=== PATIENT | female | born 1980 | race Caucasian/White ===

== ENCOUNTER → 2021-12-17 15:48 | Outpatient (CLI) | payer OTHER, SELFPAY ==
--- NOTE | 2021-12-17 15:50 | DI.US.S_ITS ---
PROCEDURE: US OB <= 14 WEEKS FETUS INDICATIONS: DATING AND VIABILITY OUTSIDE/PRIOR DATING DATA: Last menstrual period (LMP): September 23, 2021. LMP-based estimated date of delivery (RAFAL): June 30, 2022. First dating scan (date and location): December 17, 2021. Estimated date of delivery (RAFAL) from first dating scan: June 29, 2022. TECHNIQUE: Real-time scanning was performed of the fetus and maternal pelvic organs, with image documentation. Endovaginal scanning was also performed to better visualize the fetus and maternal ovaries. COMPARISON: None. FINDINGS: Embryo: Single living intrauterine gestation with estimated sonographic gestational age of approximately 12 weeks and 2 days based off crown-rump length measurement of approximately 5.8 cm. Heart rate: 178 beats per minute Maternal organs: Left ovary/adnexa not visualized. Possible corpus luteal cyst seen in the right ovary. IMPRESSION: Single living intrauterine gestation with estimated sonographic gestational age of approximately 12 weeks and 2 days. Estimated dated delivery is approximately June 29, 2022. Recommend continued clinical surveillance and return for routine second-trimester anatomy screening survey. We strive to produce accurate, complete, and clear reports of imaging services. To assist us in improving patient care, this report was composed using standard report templates and voice recognition software. Therefore, it may contain abnormal punctuation, insertions and/or omissions. Occasional wrong-word or sound-alike substitutions may occur. Though we review the report and make efforts to correct it, we do recommend that the report be read carefully in proper context to recognize any text inaccuracies. Dictated by: Emeka Luevano M.D. on 12/17/2021 at 16:46 Approved by: Emeka Luevano M.D. on 12/17/2021 at 16:48
== END ==
PROVIDERS: PCP Student in an Organized Health Care Education/Training Program; Referring Provider Obstetrics & Gynecology; Visit Provider Obstetrics & Gynecology
DX: Z34.01 Encounter for supervision of normal first pregnancy, first trimester (principal); Z3A.12 12 weeks gestation of pregnancy
CPT/HCPCS: 76801; 76817

== ENCOUNTER → 2021-12-22 15:26 | Outpatient (CLI) | payer OTHER, SELFPAY ==
[2021-12-22 19:56] LABS: Urine N gonorrhoeae NOT DETECTED
[2021-12-22 20:47] LABS: Urine Chlamydia NOT DETECTED
== END ==
PROVIDERS: PCP Student in an Organized Health Care Education/Training Program; Visit Provider Obstetrics & Gynecology
DX: Z34.01 Encounter for supervision of normal first pregnancy, first trimester (principal); Z3A.12 12 weeks gestation of pregnancy
CPT/HCPCS: 87491; 87591

== ENCOUNTER → 2021-12-22 16:26 | Outpatient (CLI) | payer OTHER, SELFPAY ==
[2021-12-22 18:09] LABS: Add Manual Diff / Slide Review NO; Basophils Absolute Auto 0 /uL (0-100); Basophils Percent Auto 0.2 % (0-2); Eosinophils Absolute Auto 100 /uL (0-450); Eosinophils Percent Auto 1.7 % (2-4); Hematocrit 37.9 % (36-46); Hemoglobin 12.8 g/dL (12.0-16.0); Lymphocytes Absolute Auto 1800 /uL (1100-4500); Lymphocytes Percent Auto 30.1 % (25-40); Mean Corpuscular HGB Conc 33.9 % (30-36); Mean Corpuscular Hemoglobin 30.3 PG (26-34); Mean Corpuscular Volume 89.4 fL (80-100); Monocytes Absolute Auto 300 /uL (0-900); Monocytes Percent Auto 5.1 % (3-14); Neutrophils Absolute Auto 3900 /uL (1500-7000); Neutrophils Percent Auto 62.9 % (50-75); Platelet Count 181 X10^3/uL (150-400); Red Blood Cell Count 4.23 X10^6/uL (4.0-5.2); Red Cell Distribution Width 15.6 % (11.6-14.8); White Blood Cell Count 6.1 X10^3/uL (4.5-11.0)
[2021-12-23 16:36] LABS: Hepatitis B Surface Antigen NEGATIVE s/c (NEGATIVE); Rubella Antibody IgG 10.2 IU/mL (>15)
[2021-12-23 16:50] LABS: HIV 1 & 2 Ab/Ag 4th Gen Combo NEGATIVE (NEGATIVE); Hep C Virus Ab w/Reflex Quant NEGATIVE s/c (NEGATIVE)
[2021-12-24 07:18] LABS: RPR Screen Non Reactive (Non Reactive); Varicella IgG Antibody 236 index (Immune >165)
== END ==
PROVIDERS: PCP Student in an Organized Health Care Education/Training Program; Referring Provider Obstetrics & Gynecology; Visit Provider Obstetrics & Gynecology
DX: Z34.01 Encounter for supervision of normal first pregnancy, first trimester (principal); Z3A.12 12 weeks gestation of pregnancy
CPT/HCPCS: 36415; 80055; 86787; 86803; 86850; 86900; 86901; 87389; 87491; 87591

== ENCOUNTER → 2022-01-19 15:13 | Outpatient (CLI) | payer OTHER, SELFPAY ==
[2022-01-19 16:28] LABS: Specimen Label NATERA
[2022-01-21 20:17] LABS: AFP Value 33.6 ng/mL (.); Gest Age on Col Date 16.9 weeks (.); Insulin Dep Diabetes No (.); OSBR Risk 1IN 10000 (.); Results Report (.); Test Results *Screen Negative* (.)
== END ==
PROVIDERS: PCP Student in an Organized Health Care Education/Training Program; Referring Provider Obstetrics & Gynecology; Visit Provider Obstetrics & Gynecology
DX: Z34.02 Encounter for supervision of normal first pregnancy, second trimester (principal); Z3A.16 16 weeks gestation of pregnancy
CPT/HCPCS: 82105

== ENCOUNTER → 2022-02-15 16:12 | Outpatient (CLI) | payer OTHER, SELFPAY ==
[2022-02-15 19:21] LABS: Appearance Urine UA CLEAR; Bilirubin Urine UA NEGATIVE (NEGATIVE); Color Urine UA YELLOW; Glucose Urine UA NEGATIVE (Negative); Ketones Urine UA NEGATIVE (NEGATIVE); Leukocyte Esterase Urine UA NEGATIVE (NEGATIVE); Nitrite Urine UA NEGATIVE (Negative); Occult Blood Urine UA NEGATIVE (Negative); Protein Urine UA NEGATIVE (Negative); Urobilinogen Urine UA 0.2 E.U./dL (0.2)
== END ==
PROVIDERS: PCP Student in an Organized Health Care Education/Training Program; Referring Provider Obstetrics & Gynecology; Visit Provider Obstetrics & Gynecology
DX: Z34.02 Encounter for supervision of normal first pregnancy, second trimester (principal); Z3A.20 20 weeks gestation of pregnancy; Z20.828 Contact with and (suspected) exposure to other viral communicable diseases
CPT/HCPCS: 81003; 86695; 86696; 87086

== ENCOUNTER → 2022-02-18 06:46 | Outpatient (CLI) | payer OTHER, SELFPAY ==
--- NOTE | 2022-02-18 06:51 | DI.US.S_ITS ---
PROCEDURE: US OB >= 14 WEEKS FETUS INDICATIONS: 20 week anatomy scan OUTSIDE/PRIOR DATING DATA: Last menstrual period (LMP): 09/23/2021. LMP-based estimated date of delivery (RAFAL): 06/30/2022. First dating scan (date and location): 12/17/2021. Estimated date of delivery (RAFAL) from first dating scan: 06/29/2022. TECHNIQUE: Real-time scanning was performed of the fetus, with image documentation and biometric measurements. Endovaginal scanning: Not performed COMPARISON: None. FINDINGS: General: A single living intrauterine gestation is present. Presentation: Vertex. Placenta: Placental position is anterior , without previa. Amniotic fluid index: 17.1 cm, normal range is 5-24 cm. Single deepest vertical pocket is 5.2 cm. heart rate: 150 beats per minute. Maternal cervical canal: 3.0 cm long. Normal lower limit is 2.5 cm. biometrics: Biparietal diameter: 5.3 cm, 22 weeks 0 days Head circumference: 19.7 cm, 21 weeks 6 days Abdominal circumference: 16.4 cm, 21 weeks 3 days Femur length: 3.6 cm, 21 weeks 2 days estimated gestational age: 21 weeks 2 days Composite gestational age from present scan: 21 weeks 5 days Estimated weight and percentile: 427 g, 55th percentile Anatomic survey: Neuro: Ventricles are non-dilated at less than 10 mm. Cisterna magna is normal at 3-11 mm. Cerebellum is normal in size and morphology. Nuchal skin fold: Normal at less than 6 mm between 14-21 weeks gestational age. Face: Nose and lips, facial profile are normal. Spine: No evidence for spina bifida. Heart: 4-chambered heart is present, with normal ventricular outflow tracts. Diaphragm: Diaphragm is intact. Stomach: Left-sided stomach is present. Kidneys: No hydronephrosis. Normal is less than 5 mm in 2nd trimester, less than 7 mm in 3rd trimester. Cord: 3-vessel cord has orthotopic insertion. Bladder: Normal in size. Extremities: All 4 extremities identified. IMPRESSION: 1. Single living intrauterine . 2. Normal 2nd trimester anatomy survey. No anomalies detected at this time. We strive to produce accurate, complete, and clear reports of imaging services. To assist us in improving patient care, this report was composed using standard report templates and voice recognition software. Therefore, it may contain abnormal punctuation, insertions and/or omissions. Occasional wrong-word or sound-alike substitutions may occur. Though we review the report and make efforts to correct it, we do recommend that the report be read carefully in proper context to recognize any text inaccuracies. Dictated by: Akash Ness M.D. on 02/18/2022 at 9:52 Approved by: Akash Ness M.D. on 02/18/2022 at 10:12
== END ==
PROVIDERS: PCP Student in an Organized Health Care Education/Training Program; Referring Provider Obstetrics & Gynecology; Visit Provider Obstetrics & Gynecology
DX: Z34.02 Encounter for supervision of normal first pregnancy, second trimester (principal); Z3A.21 21 weeks gestation of pregnancy
CPT/HCPCS: 76811

== ENCOUNTER → 2022-03-25 10:19 | Outpatient (CLI) | payer OTHER, SELFPAY ==
[2022-03-25 13:29] LABS: GTT (PREG) 1 Hour PP 50gm Dose 115 mg/dL (76-139)
[2022-03-25 15:33] LABS: Hematocrit 33.4 % (36-46); Hemoglobin 11.5 g/dL (12.0-16.0)
== END ==
PROVIDERS: PCP Student in an Organized Health Care Education/Training Program; Referring Provider Obstetrics & Gynecology; Visit Provider Obstetrics & Gynecology
DX: Z34.02 Encounter for supervision of normal first pregnancy, second trimester (principal); Z3A.26 26 weeks gestation of pregnancy
CPT/HCPCS: 36415; 82950; 85014; 85018

== ENCOUNTER → 2022-06-08 14:39 | Outpatient (CLI) | payer OTHER, SELFPAY ==
[2022-06-09 13:59] LABS: Strep Grp B PCR NEG for Grp B Strep
== END ==
PROVIDERS: PCP Student in an Organized Health Care Education/Training Program; Visit Provider Obstetrics & Gynecology
DX: Z34.83 Encounter for supervision of other normal pregnancy, third trimester (principal); Z3A.36 36 weeks gestation of pregnancy
CPT/HCPCS: 87653

== ENCOUNTER 2022-06-27 19:18 | Inpatient (IN) | payer OTHER, SELFPAY ==
--- NOTE | 2022-06-27 19:33 | PM.OBHP.1 ---
OB HPI Date/Time Date of admission: 06/27/22 Date Patient Seen: 06/28/22 Time Patient Seen: 08:10 History of Present Condition Chief complaint: IUP, 39+4 wks EGA, AMA, Rh NEG (FOB Rh NEG also) : 1 Para: 0 Estimated Date of Delivery: 06/30/22 Estimated Gestational Age (weeks): 39+5 Narrative: Evie Tran is a 42 year old primigravida admitted at 39+ 4 weeks gestational age for ripening and induction due to advanced maternal age. course has been unremarkable with solid dating, and appropriate milestones throughout. Patient is Rh negative but father of the baby is also documented to be Rh negative therefore she has not received RhoGAM during the . 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 prophylaxis at 36 weeks as a precaution. She reports no genital lesions. GBS is negative. Indications Indication for induction OB: other (Advanced maternal age) History of Present care: good care Dating criteria: LMP confirmed by 1st trimester US Ultrasounds: normal 1st trimester US and normal mid trimester US Obstetrical complications: other (Advanced maternal age) Preadmission Labs Blood type: 0 (-) negative -: Antibody screen: negative, Cystic fibrosis screen: negative, GBS status: negative, HIV: negative, HSV 1: positive, HSV 2: positive and RPR/VDLR: negative -: Chlamydia screen: not detected and Gonorrhea screen: not detected -: Rubella: not immune and Varicella: immune HCT: 35.7 HCAB: negative PAP: Normal Quad screen: Normal (AFP testing negative) Cell-free DNA: Low risk male infant 1 hr GTT: 115 Prior (ies) History: N/A Evaluation Evaluation Baseline heart rate: 135 Variability: Moderate (11-25) monitor accelerations: Present Monitor Decelerations: Episodic Contraction Frequency (minutes): 5 Uterine Contraction Intensity: Moderate Category of Tracing: Reactive Status: Category l Dilation (cm): 3 Effacement (%): 75 Dilation: 3-4 cm Effacement: 60-70% station: 0 Position of cervix: mid Consistency: soft Estrada score: 9 [facility] Medical History (Updated 06/24/22 @ 13:44 by Rohan Paula MD) Allergies (~1999) Chicken pox (~1984) Healthy female adult Surgical History (Updated 12/22/21 @ 19:35 by Sandy Miranda) Anesthesia [facility] teeth extracted (~2004) Family History (Updated 12/14/21 @ 15:39 by Lucila Saldivar RN) Father Hypertension Hyperlipidemia Prostate cancer Grandfather Heart disease Social History marital status: unmarried,living together number of children: 0 household members: significant other lives independently: Yes housing: [facility] ([facility]) pets and animals: No education level: other (doctorate (dentist)) occupational status: employed current occupational exposures/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) special uzair needs: No travel history: recent (domestic only) seatbelt use: always helmet use: Yes water heater temp set < 120 deg: Yes working smoke detector in home: Yes fire extinguisher in home: Yes carbon monox detector in home: Yes firearms in home: Yes firearms unloaded and locked: Yes do you feel safe at home: Yes Smoking Status: Never smoker second hand exposure: No alcohol intake: former (socially ~1-2/week prior to ) substance use type: does not use during the past year weight has: remained stable well-balanced diet: daily or most days daily servings fruits/ve-4 caffeine: Yes (1 cup/day, extra cup decaf on weekends) Type(s) of exercise: bicycling, weight lifting and running frequency: 3-4 times per week Meds Home Medications and Allergies Home Medications Medication Instructions Recorded Confirmed Type loratadine 10 mg tablet (Allergy 10 mg PO DAILY 12/14/21 06/27/22 History Relief (loratadine)) prenat.vits,clarence,qmw-iykp-jyfat 1 tab PO DAILY 12/14/21 06/27/22 History ferrous sulfate 143 mg PO DAILY 04/15/22 06/27/22 History acyclovir 400 mg tablet 400 mg PO TID #90 tabs 06/08/22 06/27/22 Rx Allergies Allergy/AdvReac Type Severity Reaction Status Date / Time No Known Drug Allergies Allergy Unverified 06/24/22 13:29 Review of Systems Review of Systems Narrative: Problem-specific ROS positives included in HPI OB Exam Vital signs Blood Pressure: 128/78 Pulse Rate: 62 Respiratory Rate: 16 Temperature: 97.7 F HENNH Head: normal to inspection, normocephalic and atraumatic Eyes General: appearance normal, both eyes and all related structures Resp Effort & Inspection: normal respiratory effort and able to speak in complete sentences Auscultation: clear to auscultation bilaterally Cardio Rate: regular rate Rhythm: regular rhythm Heart Sounds: S1 normal, S2 normal and no murmurs Extremities Lower extremity: Yes normal to inspection GI Inspection: normal to inspection Palpation: Yes soft and Yes no hepatosplenomegaly Uterus Location (Fundal Height): 36 Presentation: vertex Estimated Weight (lbs): 7 Objective Labs 06/27/22 20:30 Assessment and Plan Assessment and Plan Assessment and Plan narrative: ASSESSMENT 1. Intrauterine , 39+5 wks EGA 2. Advanced maternal age 3. Rh negative status 4. GBS negative status 5. Thrombocytopenia PLAN 1. Admit for ripening and delivery 2. See admission orders Time Spent with Patient Total time spent with greater than 50% in coordination of care (as documented) at patient's floor/unit and/or counseling patient:: 15-24 minutes
[2022-06-27 21:00] LABS: Add Manual Diff / Slide Review NO; Basophils Absolute Auto 0 /uL (0-100); Basophils Percent Auto 0.3 % (0-2); Eosinophils Absolute Auto 100 /uL (0-450); Eosinophils Percent Auto 0.9 % (2-4); Hematocrit 34.7 % (36-46); Hemoglobin 12.1 g/dL (12.0-16.0); Lymphocytes Absolute Auto 2200 /uL (1100-4500); Lymphocytes Percent Auto 31.7 % (25-40); Mean Corpuscular HGB Conc 34.9 % (30-36); Mean Corpuscular Hemoglobin 32.8 PG (26-34); Mean Corpuscular Volume 94.1 fL (80-100); Monocytes Absolute Auto 300 /uL (0-900); Monocytes Percent Auto 4.7 % (3-14); Neutrophils Absolute Auto 4300 /uL (1500-7000); Neutrophils Percent Auto 62.4 % (50-75); Platelet Count 142 X10^3/uL (150-400); Red Blood Cell Count 3.69 X10^6/uL (4.0-5.2); Red Cell Distribution Width 13.3 % (11.6-14.8)
[2022-06-27] MEDS: miSOPROStoL 25 MCG TABLET 50 MCG VAG (21:01)
[2022-06-27 21:03] VITALS: BP 135/76
[2022-06-28] MEDS: LACTATED RINGERS 1,000 ML 100 ML IV ×3 (02:25→11:18)
[2022-06-28] MEDS: fentaNYL 100 MCG/2 ML INJ 50 MCG IV (05:21)
[2022-06-28] MEDS: LACTATED RINGERS 500 ML 1000 ML IV (06:04)
[2022-06-28] MEDS: FENT 2MCG/ML BUPIV 0.125% EPI 200 MCG/100 ML PLAST..BAG 8 MCG EPIDURAL (06:33)
[2022-06-28 08:58] VITALS: BP 128/78; PULSE 62; RESP 16; TEMP 36.5
--- NOTE | 2022-06-28 08:58 | PM.OBPNLAB ---
Date/Time Date Patient Seen: 06/28/22 Time Patient Seen: 08:58 Pain Control Pain control: tolerating well and epidural Pelvic Exam Dilation (cm): 3 Effacement (%): 8 station: 0 Amniotic membrane status: Ruptured Contractions Contractions on admission: none Monitor mode: External Contraction pattern: Irregular Contraction phase: Resting Contraction intensity: Moderate Status status: Category ll Heart Rate Baseline: 130 Monitor Decelerations: Episodic, Late and Prolonged Monitor Variability: Minimal Assessment and Plan Assessment: active labor Plan: Comments: Patient's recurrent decelerations now associated with vaginal bleeding. Counseled re: options and will move forward with primary due to intolerance of labor.
[2022-06-28] MEDS: CEFAZOLIN 2 GM/100 ML PREMIX 100 ML IV (09:03)
--- NOTE | 2022-06-28 09:15 | SUR.OPER ---
Supine on padded OR bed, head on pillow, arms secured on padded arm boards at <90 degrees abduction, legs uncrossed, safety belt at thigh, tape over blanket over lower legs.
--- NOTE | 2022-06-28 09:25 | SUR.OPER ---
TOB 0920. PLACENTA AND BABY WITH OB RN.
--- NOTE | 2022-06-28 10:00 | SUR.OPER ---
FHT 120 prior to incision, viable baby boy born at 0920, placenta delivered at 0923, 4/9, cord blood and placenta given to OB RN
[2022-06-28 10:12] VITALS: BP 134/70; PULSE 64; RESP 14; TEMP 36.3; O2SAT 100
[2022-06-28 10:17] VITALS: BP 140/74; PULSE 65; RESP 21; O2SAT 100
--- NOTE | 2022-06-28 10:17 | P.OP_ITS ---
Operative Date/Time/Diagnoses Date of procedure: 06/28/22 Time of procedure: 09:00 Pre-op diagnosis: Intrauterine gestation, viramontes, 39+5 weeks EGA intolerance of labor Post-op diagnosis: same Procedure & Clinicians Procedure: Primary section, low transverse cervical incision Same procedure as scheduled: Yes Indications: Evie is a 42-year-old at 39+ 5 weeks' gestation admitted last evening for cervical ripening and induction due to advanced maternal age. She has done well with good response to oral Cytotec and experienced spontaneous rupture of membranes overnight. She had an episode of bradycardia following spontaneous rupture membranes which resolved with position change and fluid bolus. The patient however has started having episodes of sustained bradycardia down to the 70-80 beats per minute range and extended periods of minimal variability. Cervical exam shows the patient to still be 3 cm dilated with the vertex at 0 station therefore is remote from delivery with worsening periods of bradycardia. After discussion of all options, patient agrees to proceed with primary section on an expedited basis due to intolerance of labor. Surgeon: Rohan Paula Flatbed Truck Driver: Allie Lopez Reason for Flatbed Truck Driver: Flatbed Truck Driver required for the safe, effective, and timely completion of this surgery. Anesthesia Type: Spinal Operative Notes Findings: Viable male BW 3000 gms. (6 lbs. 9.8 oz.), Apgars 5/9/9, delivered from the vertex presentation. Normal gravid anatomy. Closure Type: primary Specimen(s): cord blood and cord pH Intraoperative meds administered: Pitocin Applied: Catheter Estimated Blood Loss (mL): 700 Blood products transfused: none Procedure in detail: With her informed written consent, the patient was taken to the operating room and placed in the supine position for a primary section procedure, for the indication(s) above. The abdomen was prepped and draped in the usual manner for section and a pre-surgical timeout was taken per [facility] OR protocol. Once effective anesthesia was confirmed, a 13 cm transverse Pfannenstiel incision was made in the skin and taken down through the subcutaneous tissues to the deep fascia. The deep fascia was incised transversely, the rectus abdominal eyes bluntly and sharply, and the peritoneal cavity entered without difficulty. The lower uterine segment was visualized and the position/presentation palpated. A transverse incision at or above the vesicouterine reflection was made with Metzenbaum scissors and transverse hysterotomy performed near the midline. Amniotomy revealed clear fluid. The incision was extended bilaterally with digital traction and the was delivered easily from the vertex presentation. The was not vigorous at and delayed cord clamping was not performed. The placenta was delivered intact using gentle cord traction and fundal massage. Cord blood was obtained for routine studies and cord blood gases which were normal. The uterine cavity was then cleared of any clot/debris first with a sloppy wet lap tape followed by a dry lap tape. Ring forceps were then applied to the angles and the midline of the incised RAYNE. A primary closure of the uterus was then accomplished with #1 CCGS in a running interlocking stitch followed by a 2nd layer of #1 CCGS in a running interlocking imbricating stitch. No additional sutures were required to achieve complete hemostasis. Once pelvic hemostasis was assured, the bladder flap and anterior peritoneum were closed with a running 2-0 Vicryl suture and the fascia closed with #1 Vicryl in a running stitch initiated at both angles and tying separately near the midline. The subcuta neous tissues were reapproximated with 2-0 plain catgut suture using inverted interrupted stitches. The skin edges were then brought together with 4-0 Monocryl in a subcuticular closure and the incision was reinforced with 1 Steri-Strips. An appropriate compression dressing was applied and the patient transferred to PACU for recovery and subsequent transfer to the Center for recuperation. Complications: none Baby 1: Infant Gender: Male Presentation: vertex Position: Left Occiput Anterior Placental Delivery Description: Spontaneous Cord Vessel Description: 3 Vessels score (1 min): 5 score (5 min): 9 score (10 min): 9 weight: 6 lb 9.822 oz Post-operative Condition: stable Disposition: PACU Aftercare: routine postop
[2022-06-28 10:22] VITALS: BP 137/84; PULSE 75; RESP 18; O2SAT 100
[2022-06-28 10:26] VITALS: BP 142/92; PULSE 68; RESP 13; O2SAT 100
--- NOTE | 2022-06-28 10:27 | SUR.PHASEI ---
Report called to Kylee.
[2022-06-28] MEDS: OXYCODONE/ACETAMINOPHEN 5/325 TABLET 1 TAB PO ×2 (10:30→17:28)
[2022-06-28 10:31] VITALS: BP 132/85; PULSE 67; RESP 17; TEMP 36.4; O2SAT 100
--- NOTE | 2022-06-28 10:52 | SUR.PHASEI ---
Patient transferred to the [facility]. Condition stable. Left in care of ANJELICA Pichardo. Receiving RN declined to check fundus. IV and mcgill patent.
[2022-06-28] MEDS: ACYCLOVIR 400 MG TABLET PO ×2 (17:27→20:58)
[2022-06-28] MEDS: KETOROLAC 30 MG/ML VIAL IV (17:27)
[2022-06-29] MEDS: ACETAMINOPHEN 325 MG TABLET 650 MG PO ×2 (02:41→09:40)
[2022-06-29] MEDS: OXYCODONE IR 10 MG TABLET PO ×2 (02:41→09:40)
--- NOTE | 2022-06-29 05:23 | PC.NURSE ---
at approximately 0240 a second 10mg of oxycodone was removed along with an additional 650mg of tylenol. First set fell into the crevice of dirty chair. Only able to recover the 10mg of oxycodone and one 325mg tab of tylenol other 325mg was stuck in chair and unreachable.
[2022-06-29 06:20] LABS: Add Manual Diff / Slide Review NO; Basophils Absolute Auto 0 /uL (0-100); Basophils Percent Auto 0.1 % (0-2); Eosinophils Absolute Auto 0 /uL (0-450); Eosinophils Percent Auto 0.5 % (2-4); Hematocrit 26.4 % (36-46); Hemoglobin 9.1 g/dL (12.0-16.0); Lymphocytes Absolute Auto 1800 /uL (1100-4500); Lymphocytes Percent Auto 22.7 % (25-40); Mean Corpuscular HGB Conc 34.6 % (30-36); Mean Corpuscular Hemoglobin 32.5 PG (26-34); Mean Corpuscular Volume 94.1 fL (80-100); Monocytes Absolute Auto 300 /uL (0-900); Monocytes Percent Auto 3.8 % (3-14); Neutrophils Absolute Auto 5900 /uL (1500-7000); Neutrophils Percent Auto 72.9 % (50-75); Platelet Count 115 X10^3/uL (150-400); Red Blood Cell Count 2.81 X10^6/uL (4.0-5.2); Red Cell Distribution Width 13.5 % (11.6-14.8)
--- NOTE | 2022-06-29 07:08 | PM.OBPN.1 ---
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 No N&V, pain is reasonably well controlled. + flatus. Date Patient Seen: 06/29/22 Time Patient Seen: 07:10 Exam Vital Signs (past 8 hours): Oxygen Delivery Method Room Air Const General: cooperative and comfortable Nutritional Appearance: average body habitus Orientation: alert and oriented x3 HENMT Head: normal to inspection, atraumatic and abrasion Ears: hearing grossly normal bilaterally Face and sinus: face symmetric Eyes General: appearance normal, both eyes and all related structures Conjunctivae: conjunctivae normal Sclera: sclerae normal EOM: EOM intact bilaterally Neck Neck: normal visual inspection Resp Effort & Inspection: normal respiratory effort and able to speak in complete sentences Auscultation: clear to auscultation bilaterally Cardio Rate: regular rate Rhythm: regular rhythm Heart Sounds: S1 normal, S2 normal and no murmurs GI Inspection: normal to inspection and incision (Surgical dressing clean and dry) Palpation: soft, no hepatosplenomegaly and tender (Mild, diffuse postsurgical tenderness) External Female Exam: other (No significant bleeding noted) Extrem General: no calf tenderness Psych Appearance: grossly normal Mental Status: mental status grossly normal Speech and Movement: speech and movement normal Mood: congruent mood Affect: normal affect Attitude: cooperative Thought Process: normal Thought Content: normal Judgment: judgment good Objective Labs 06/29/22 06:02 Labs: Laboratory Results - last 24 hr 06/29/22 06:02 WBC 8.0 RBC 2.81 L Hgb 9.1 L Hct 26.4 L MCV 94.1 MCH 32.5 MCHC 34.6 RDW 13.5 Plt Count 115 L Neut % (Auto) 72.9 Lymph % (Auto) 22.7 L [place] % (Auto) 3.8 Eos % (Auto) 0.5 L Baso % (Auto) 0.1 Neut # (Auto) 5900 Lymph # (Auto) 1800 [place] # (Auto) 300 Eos # (Auto) 0 Baso # (Auto) 0 Assessment & Plan Plan day: 1 plan OB: routine postop care Comments: Patient will remain today and to go down to [facility] to check on the baby. Possible discharge later today. Time Spent With Patient Time: Total time spent is greater than 50% in coordination of care (as documented) at patient's floor/unit and/or counseling patient: Time with patient: 15-24 minutes
--- NOTE | 2022-06-29 08:43 | PM.OBDS.1 ---
Discharge Providers Provider Date of admission: 06/27/22 19:18 Discharge Date: 06/29/22 Primary care physician: Evie Hess MD Consults: 06/28/22 17:29 Consult to Exploration Geologist Routine Comment: Discharge provider: Rohan Paula MD Summary Hospital Course Date Patient Seen: 06/29/22 Time Patient Seen: 08:43 Diagnoses: Intrauterine gestation, 39+5 weeks EGA, delivered by primary section intolerance of labor Advanced maternal age Thrombocytopenia Anemia, chronic Hospital Course: Evie was admitted to the [facility] of 06/27/2022 for cervical ripening with oral Cytotec. She responded well to Cytotec and IV Pitocin was initiated on the morning of 06/28/2022. Patient had experienced spontaneous rupture of membranes overnight and experienced an episode of transient bradycardia following SROM. She subsequently began developing repetitive episodes of spontaneous decelerations down as low as 70-80 with slow return to baseline and periodic loss of variability. Cervical dilation had not progressed beyond 3 cm with the vertex at 0 station and remote from delivery the decision was was to proceed to primary section due to intolerance of labor remote from delivery. Late on the morning of 06/28/2022 the patient underwent an uneventful primary section with details of that procedure well summarized on my operative note of that date. Following delivery the mother has done extremely well with prompt return of bowel and bladder function, she has remained afebrile and normotensive, is ambulating independently, tolerating a regular diet, and her pain is well controlled with oral pain medications. 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 As a result, patient requests early discharge and will be released after counseling regarding precautionary symptoms, limitations of activity, medications, and plans for follow-up which will be in 1 week. Medications at discharge will include oxycodone 5 mg tab #30, and ibuprofen 600 mg p.o. q.6 hours as needed for pain dispense 30 with 2 refills. Peripartum Data Delivery Method: Emergency Section Laceration Description: None Procedures: Continuous lumbar epidural Primary section, low transverse cervical complications: none Orwell 1: Gender: Male Disposition of : NICU (Transferred to [facility] early a.m. 06/29/2022) Discharge Diagnosis (1) Delivery by section: Status: Acute (2) intolerance to labor, delivered, current hospitalization: Status: Acute (3) Positive test for herpes simplex virus (HSV) antibody: Status: Acute (4) Rh negative status during : Status: Acute (5) Advanced maternal age affecting , antepartum: Status: Acute Status at Discharge Cognitive/behavioral status at discharge: oriented Functional status at discharge: independent ambulation Overall status at discharge: patient is progressing back to baseline Time Spent with Patient Time attestation: Total time spent providing and/or coordinating discharge services: Time spent: Less than 30 minutes Objective Labs 06/29/22 06:02 Labs: Laboratory Results - last 24 hr 06/29/22 06:02 WBC 8.0 RBC 2.81 L Hgb 9.1 L Hct 26.4 L MCV 94.1 MCH 32.5 MCHC 34.6 RDW 13.5 Plt Count 115 L Neut % (Auto) 72.9 Lymph % (Auto) 22.7 L Lewis % (Auto) 3.8 Eos % (Auto) 0.5 L Baso % (Auto) 0.1 Neut # (Auto) 5900 Lymph # (Auto) 1800 Lewis # (Auto) 300 Eos # (Auto) 0 Baso # (Auto) 0 Exam Vital Signs (past 8 hours): Oxygen Delivery Method Room Air Const General: cooperative and comfortable Nutritional Appearance: average body habitus Orientation: alert and oriented x3 HENMT Head: normal to inspection, atraumatic and abrasion Ears: hearing grossly normal bilaterally Face and sinus: face symmetric Eyes General: appearance normal, both eyes and all related structures Conjunctivae: conjunctivae normal Sclera: sclerae normal EOM: EOM intact bilaterally Neck Neck: normal visual inspection Resp Effort & Inspection: normal respiratory effort and able to speak in complete sentences Auscultation: clear to auscultation bilaterally Cardio Rate: regular rate Rhythm: regular rhythm Heart Sounds: S1 normal, S2 normal and no murmurs GI Inspection: normal to inspection and incision (Clean and dry, compression dressing removed, Aquacel applied) Palpation: soft, no hepatosplenomegaly and tender (Mild, diffuse postsurgical tenderness) Auscultation: hypoactive bowel sounds External Female Exam: other (No significant bleeding noted) Extrem General: no calf tenderness Psych Appearance: grossly normal Mental Status: mental status grossly normal Speech and Movement: speech and movement normal Mood: congruent mood Affect: normal affect Attitude: cooperative Thought Process: normal Thought Content: normal Judgment: judgment good Discharge Plan Discharge Plan Patient Disposition: Home Provider Discharge Comment: Please review the written instructions you received when you were discharged from the hospital. Your follow-up appointment will be 1 week after your delivery and I look forward to seeing you then. If however in the meanwhile you have any concerns, problems, or questions, please contact me either through the office phone at [phone], or via the patient portal. Discharge orders & Medications Prescriptions: New ibuprofen 600 mg Tablet 600 mg PO Q6H Qty: 30 2RF oxycodone 5 mg tablet 5 mg PO Q6H PRN (Reason: pain) Qty: 30 0RF Continued prenat.vits,clarence,xpf-wsmk-zbout Tablet 1 tab PO DAILY loratadine [Allergy Relief (loratadine)] 10 mg tablet 10 mg PO DAILY ferrous sulfate 47.5 mg iron tablet extended release 143 mg PO DAILY acyclovir 400 mg tablet 400 mg PO TID Qty: 90 2RF Medication counseling provided by Pharmacist: No Follow up/Referrals: Evie Hess MD [Primary Care Provider] - Rohan Paula MD [Physician] - Discharge Health Status Multidrug resistant organism: No MDRO Diet/Activity/Treatments Diet: Diet as Tolerated Activity: As tolerated. Other treatments: [id number]-bjqvrkl Tylenol may be used for additional pain relief. Muxb-ygu-sgsvfdt iron with vitamin-C should be taken daily for the next 30 days. Tbyy-bto-kfuytjo stool softeners and/or MiraLax may be used as needed for constipation. Skin/Wound/Dressing Care Report to your healthcare provider any signs of infection, such as:: chills, fever, increased pain, unusual drainage and unusual redness Dressing: Dressing will be removed at the one-week postop visit. Visit Report/Discharge Packet Instructions: DI for , DI for Prescription Opioid Use Stand Alone Forms: Discharge: Care Discharge Data Primary Care Provider: Evie Hess
[2022-06-29 09:40] VITALS: TEMP 36.8
[2022-06-29] MEDS: IBUPROFEN 600 MG TABLET PO (09:40)
[2022-06-29] MEDS: ACYCLOVIR 400 MG TABLET PO (09:40)
[2022-06-29] MEDS: DOCUSATE 100 MG CAPSULE PO (09:40)
== END 2022-06-29 09:50 | disposition home or self-care (01) | DRG 788 ==
PROVIDERS: Admitting Provider Obstetrics & Gynecology; PCP Student in an Organized Health Care Education/Training Program; Referring Provider Obstetrics & Gynecology; Visit Provider Obstetrics & Gynecology
PROC: 10D00Z1 Extraction of Products of Conception, Low, Open Approach (ICD-10-PCS; CPT 59514; principal; 2022-06-28 09:15)
DX: O98.52 Other viral diseases complicating childbirth (principal); B00.9 Herpesviral infection, unspecified; Z3A.39 39 weeks gestation of pregnancy; Z37.0 Single live birth; O76 Abnormality in fetal heart rate and rhythm complicating labor and delivery
CPT/HCPCS: 36415; 59050; 59200; 59510; 59514; 85025; 86850; 86900; 86901; G0379; J0690; J1885; J2274; J2590; J3010